=== PATIENT | male | born 1955 | race Caucasian/White ===

== ENCOUNTER → 2017-12-30 | Emergency (ER) | payer OTHER ==
[~2017-12-30] VITALS: Ht 170.2 cm; Wt 104.3 kg
[~2017-12-30] MED LIST: ASPIR 8181 MG; AZOR 5-20 MG T1 EACH; COZAAR25 MG; CRESTOR5 MG; FORTAMET1000 MG
== END | disposition home or self-care (01) ==
LOC: ER 09:50
DX: T20.16XA Burn of first degree of forehead and cheek, initial encounter (principal); T20.10XA Burn of first degree of head, face, and neck, unspecified site, initial encounter; T23.272A Burn of second degree of left wrist, initial encounter; X08.8XXA Exposure to other specified smoke, fire and flames, initial encounter; Y92.69 Other specified industrial and construction area as the place of occurrence of the external cause; Y99.8 Other external cause status